=== PATIENT | male | born 1940 | race Caucasian/White ===

== ENCOUNTER 2016-12-07 09:23 | Inpatient (IN) | payer OTHER ==
[2016-11-24 12:22] LABS: % IMMATURE GRANULYOCYTES 0.2 % (0.0-1.1); ABSOLUTE IMMATURE GRANULOCYTES 0.01 10^3/uL (0.00-0.10); ADD DIFF? NO; ADD MORPH? NO; ADD SCAN? NO; ATYPICAL LYMPHOCYTE FLAG 30 (0-99); FRAGMENT RBC FLAG 0 (0-99); HEMATOCRIT 50.7 % (40.0-51.0); HEMOGLOBIN 17.3 g/dL (13.7-17.5); LEFT SHIFT FLG 0 (0-99); LIPEMIA HEMOLYSIS FLAG 90 (0-99); MEAN CELL HEMOGLOBIN 29.5 pg (27.9-34.1); MEAN CELL HEMOGLOBIN CONCENTR. 34.1 g/dL (32.4-36.7); MEAN CELL VOLUME 86.5 fL (81.5-99.8); MEAN PLATELET VOLUME 10.2 fL (8.7-11.7); PLATELET CLUMPS FLAG 0 (0-99); PLATELET COUNT 162 10^3/uL (150-400); RED BLOOD CELL COUNT 5.86 10^6/uL (4.40-6.38); RED CELL DISTRIBUTION WIDTH 12.9 % (11.5-15.2)
--- NOTE | 2016-12-05 14:58 | GHP ---
[f rep st] PREOP HISTORY AND PHYSICAL DATE OF ADMISSION: 12/07/2016 PROBLEM: Severe left knee degenerative arthritis. HISTORY OF PRESENT ILLNESS: The patient is a 76-year-old male who will be admitted for a left total knee arthroplasty with Dr. Blank at the [facility] on December 07, 2016. The patient has had pain in the left knee for about a year. He has pain both during the daytime and nighttime. His knee will be quite sore with walking on flat ground, as well as gobc-rn-xqyh motions. He is s till able to do some activities, such as bowling 2 times per week. He has tried and failed anti-inf lammatories and tramadol. He has had 1 previous cortisone injection, which was not very successful. No previous surgery of the left knee. Because of his progressive pain and advanced arthritis, the patient has elected to proceed with a left total knee arthroplasty. PAST MEDICAL HISTORY: Pertinent for rate-controlled atrial fibrillation, pacemaker, BPH, and histor y of septic shock in March of 2016 secondary to UTI. No history of MRSA, CAD, DVT or PE. No histo ry of hepatitis. CURRENT MEDICATIONS: Eliquis 5 mg b.i.d., atorvastatin 20 mg daily, finasteride 5 mg. ALLERGIES: He has no known drug allergies. SOCIAL HISTORY: The patient is retired. He is a former smoker. He has occasional alcohol and caff eine intake. He is . FAMILY HISTORY: Pertinent for coronary artery disease. PAST SURGICAL HISTORY: Pertinent for pacemaker implantation. PHYSICAL EXAMINATION: GENERAL: He is an otherwise healthy-appearing 76-year-old male. HEENT: Cma d is normocephalic, atraumatic. Eyes are PERRLA. Conjunctivae and sclerae are clear. Mouth: He h as good oral hygiene, without any loose teeth. LUNGS: Clear. HEART: Irregularly irregular rhythm, consistent with atrial fibrillation. No murmurs, gallops, or rubs are noted. EXTREMITIES: Pertin ent findings are limited to the patient's left knee. He has slight varus alignment of the left knee . He has a small effusion. Full extension and 125 degrees of flexion. There is tenderness of the medial joint line. The knee is stable to exam. He has mild crepitus with active knee extension. DIAGNOSTIC IMAGING: Recent x-rays taken of the patient's left knee show near complete medial compar tment degenerative arthritis with emru-zw-byzd findings. Peripheral osteophytes and increased subch ondral sclerosis are also noted. IMPRESSION ON ADMISSION: 1. Advanced left knee degenerative arthritis. 2. Chronic atrial fibrillation with Eliquis therapy. 3. History of on-demand pacemaker for heart block. 4. History of benign prostatic hypertrophy. 5. History of septic shock secondary to urinary tract infection. PLAN: The plan will be for the patient to undergo a left total knee arthroplasty with Dr. Blank at the [facility] on December 07, 2016. The surgery has been described to the patient, i ncluding the risks, benefits, and expectations. He understands the importance of postoperative phys ical therapy. He understands the risk of blood clots, heart attack, persistent knee pain or stiffne ss, or infection. All his questions have been answered, and he consents to surgery in the office to day. /[id number]/MODL
[~2016-12-07 09:23] MED LIST: ACETAMINOPHEN 325 MG TAB PO ONE; CHLORHEXIDINE GLUC HIBICLENS 118 ML BTL TP ONE; DEXAMETHASONE 4 MG/ML VIAL IVP ONE; FAMOTIDINE 20 MG TAB PO ONE; NS IV ONE; POVIDONE-IODINE 20 ML in SODIUM CL IRRIG SOLUTION 500 ML IRR ONE; ROPI/epiNEPH/KETOROLAC JOINT COCKTAIL IU ONE; TRANEXAMIC ACID IV ONE; VANCOMYCIN 1 GM VIAL IV ONE; ceFAZolin 1 GM/5 ML SYR ONE
[2016-12-07] MEDS ORDERED: DEXAMETHASONE 4 MG/ML VIAL ONE (10:21)
[2016-12-07] MEDS ORDERED: FAMOTIDINE 20 MG TAB ONE (10:21)
[2016-12-07] MEDS ORDERED: CEFAZOLIN 2 GM/DEXTROSE/100 ML BAG IV ONE (10:22)
[2016-12-07] MEDS ORDERED: ACETAMINOPHEN 325 MG TAB ONE (10:22)
[2016-12-07] MEDS ORDERED: TRANEXAMIC ACID 3,000 MG/50 ML BAG IRR ONE (10:40)
[2016-12-07] MEDS ORDERED: fentaNYL 100 MCG/2 ML INJ ONE ×4 (11:05→14:27)
[2016-12-07] MEDS ORDERED: MIDAZOLAM 2 MG/2 ML VIAL ONE ×2 (11:05→11:52)
[2016-12-07] MEDS ORDERED: PROPOFOL/EMULSION 500 MG/50 ML BOTTLE IV ONE (11:06)
[2016-12-07] MEDS ORDERED: ONDANSETRON 4 MG/2 ML VIAL ONE (11:10)
[2016-12-07] MEDS ORDERED: LR 1,000 ML IV ONE (11:21)
[2016-12-07] MEDS ORDERED: SUCCINYLCHOLINE CHLORIDE*ANESTHESIA ONLY*200 MG/10 ML SYR IVP ONE (12:14)
[2016-12-07] MEDS ORDERED: ROCURONIUM 50 MG/5 ML VIAL ONE (12:15)
[2016-12-07] MEDS ORDERED: TRANEXAMIC ACID 3,000 MG in NS 50 ML IRR ONE (12:30)
[2016-12-07] MEDS ORDERED: CHLORHEXIDINE GLUC HIBICLENS 118 ML BTL TP ONE (12:30)
[2016-12-07] MEDS ORDERED: ROPIVACAINE HCL 150 MG/30 ML INJ ONE (13:02)
--- NOTE | 2016-12-07 13:49 | POSTOPPROG ---
Post Op Note Date of Operation: 12/07/16 Surgeon: Rainer Blank Account Development Executive: Harsha/Kennedy Anesthesiologist: Chandana Post-op Diagnosis: R knee arthritis Procedure: R TKA Inf/Abcess present in the surg proc area at time of surgery?: No EBL: 50-100 (add canal block)
[2016-12-07] MEDS ORDERED: diphenhydrAMINE 25 MG CAP PO PRN (14:11)
[2016-12-07] MEDS ORDERED: KETOROLAC 30 MG/1 ML SDV IVP PRN (14:11)
[2016-12-07] MEDS ORDERED: POLYETHYLENE GLYCOL 3350 17 GM PKT PO PRN (14:11)
[2016-12-07] MEDS ORDERED: ONDANSETRON 4 MG/2 ML VIAL IVP PRN (14:11)
[2016-12-07] MEDS ORDERED: DIPHENOXYLATE/ATROPINE LOMOTIL 1 TAB PO PRN (14:11)
[2016-12-07] MEDS ORDERED: traMADol 50 MG TAB PO PRN (14:11)
[2016-12-07] MEDS ORDERED: PROMETHAZINE HCL 25 MG SUPPR PR PRN (14:11)
[2016-12-07] MEDS ORDERED: METOCLOPRAMIDE 10 MG/2 ML VIAL IVP PRN (14:11)
[2016-12-07] MEDS ORDERED: LACTULOSE 20 GM/30 ML UDCUP PO PRN (14:11)
[2016-12-07] MEDS ORDERED: BISACODYL 10 MG SUPP PR PRN (14:11)
[2016-12-07] MEDS ORDERED: PHARMACY PAIN CONSULT 1 EA MISC PRN (14:11)
[2016-12-07] MEDS ORDERED: MAGNESIUM HYDROXIDE 30 ML UDCUP PO PRN (14:11)
[2016-12-07] MEDS ORDERED: TEMAZEPAM 15 MG CAP PO PRN (14:11)
[2016-12-07] MEDS ORDERED: ONDANSETRON DISINTEGRATING 4 MG TAB PO PRN (14:11)
[2016-12-07] MEDS ORDERED: CYCLOBENZAPRINE 10 MG TAB PO PRN (14:11)
[2016-12-07] MEDS ORDERED: NS 500 ML IV PRN (14:11)
[2016-12-07] MEDS ORDERED: LR 1,000 ML IV SCH (14:30)
--- NOTE | 2016-12-07 14:39 | GOP ---
[f rep st] OPERATIVE REPORT DATE OF OPERATION: 12/07/2016 SURGEON: Rainer Blank MD NOISE ABATEMENT ENGINEER: Mannie Mcleod PA-C and Kristopher Benavides CFA. ANESTHESIA: General anesthesia and adductor canal block. ANESTHESIOLOGIST: Suma Ellington DO. PREOPERATIVE DIAGNOSIS: Left knee severe degenerative arthritis with varus deformity. POSTOPERATIVE DIAGNOSIS: Left knee severe degenerative arthritis with varus deformity. PROCEDURE PERFORMED: Left total knee arthroplasty, cemented, Huff and Nephew Journey II, posterior stabilized. FINDINGS: ESTIMATED BLOOD LOSS: Following placement of the tourniquet, was about 100 cc. Following deflation of the tourniquet, I applied topical tranexamic acid. This was left in the join t for 3 or 4 minutes before irrigating it out with a Betadine solution. The sponge and needle count was correct on 2 occasions. He was awakened from anesthesia, transferred to his gurney, and taken to PACU in satisfactory condit ion. There were no intraoperative complications. In the PACU, for additional postop pain control, Dr. Ellington performed an adductor canal block. Mannie Mcleod and Kristopher Benavides acted as surgical assistants. Their assistance was a medical carmen roblero. DESCRIPTION OF PROCEDURE: The patient was given 2 g of IV Ancef preoperatively within 60 minutes of surgery. He also received IV tranexamic acid at a dose of 10 mg/kg. He is placed on the operating room table and given general anesthesia by Dr. Ellington. He preferred not to have a spinal because he had been on Eliquis. A Mccormick catheter was not used. He wore a JON stocking and SCD on the nonop erative leg. His right lower extremity was prepped with ChloraPrep from the upper thigh tourniquet to the tips of the toes. It was draped free using sterile sheets, stockinette, and Ioban plastic ad hesive drape. The lower leg was wrapped with compressive Coban. The leg was exsanguinated with la vation and a 6-inch compressive wrap, and the pneumatic tourniquet was inflated to 275 mmHg. The World Health Organization time-out was performed to verify the correct patient identity and the correct surgical side. The [place] time-out was also performed. The [place] leg holding device was sterilely attached to the operating room table and used throughout the procedure to help position the knee. A straight midline incision was made centered on the blair lla. Subcutaneous tissues were sharply divided and hemostasis was obtained using electrocautery. A medial subcutaneous flap was developed and the capsule and synovium were opened in medial parapate llar fashion. Extensive degenerative changes were present in the patellofemoral joint and in the me dial compartment. The medial capsule and periosteum were elevated off the rim of the medial tibial plateau all around the posteromedial corner. The medial collateral ligament was released enough to balance the medial side of the knee. In order to improve exposure, the patella was prepared first. The original thickness of the patella was measured. Peripheral osteophytes were removed. He had a very large patella. I cut a flat jer face on the back of the patella. It was sized for a 41 mm resurfacing component. I removed enough bone from the patella such that the remaining bone plus the thickness of the patellar component recr eated the original thickness of the patella. The composite thickness was 29 mm. The intramedullary alignment guide system was used to set up the distal femoral cut. The distal fem ur was cut in 5 degrees of valgus. Because of a mild preoperative flexion contracture, I made a +2 mm cut on the distal femur. The sizing jig was used to determine proper femoral sizing. He was a t rue size 9. The 5-in-1 cutting block was applied, and the anterior and posterior cut and chamfer cu ts were made. The final jig was used to remove the central portion of the distal femur to accommoda te the posterior stabilized femoral component. I was careful to determine proper rotation by refere ncikarolyn off Whitesides line. Each cut was checked for accuracy before and after it was made. His fem ur was sized for a size 9 posterior stabilized component. The trial component was tapped securely i n place and was a good fit. Next, the tibia was prepared. The proximal tibial cut was made using the extramedullary alignment g uide system. The cut was made in a few degrees of posterior slope. I was careful to achieve proper varus-valgus alignment and proper rotation. The posterior compartment was cleared of meniscal remn ants. Osteophytes were removed from the back of the femoral condyles. I checked the flexion and ex tension gaps and they were equal, balanced and rectangular. The tibia was sized for a size 8 component. With the trial components in place, I selected a 9 mm p olyethylene posterior stabilized tibial insert. The knee came to full extension and flexed to 130 d egrees. No overstuffing in flexion. His collateral ligaments were stable and balanced in 90 degree s of flexion and full extension. The trial patellar button was applied, and tracking was checked. Tracking was excellent without any digital pressure. 40 mL of the joint anesthetic cocktail were injected in the posterior capsule, the periarticular str uctures, the quadriceps muscle and the tendon areas, and the subcutaneous tissues along the skin edg es. A second dose of IV tranexamic acid was given at a dose of 10 mg/kg. The surfaces were prepared for cementing. They were carefully cleaned with the pulsating lavage and thoroughly dried. The CarboJet device was used to blow dry the cancellous surfaces. A double batc h of high viscosity methylmethacrylate cement with 2 g of powdered vancomycin added was mixed. Whil e it was still in a semiliquid state, all [address] components were cemented in place. Excess cement was re moved before it hardened. The 9 mm trial tibial insert was re-tried and was the proper thickness. The actual component was in serted, locked into place. The knee was thoroughly irrigated 1 final time with a dilute Betadine so lution. The tourniquet was deflated and the total tourniquet time was 60 minutes. The vastus medialis portion of the extensor mechanism was repaired with several interrupted figure-o f-eight #2 FiberWire sutures. The capsule and synovium were closed first with multiple interrupted cobmzx-qz-[id number] 0 PDS sutures, followed by a running #2 barbed Ethicon Stratafix PDO suture. Subcut aneous tissues were closed with a running 0 barbed Ethicon Stratafix Monoderm suture. The skin was closed with a running 3-0 barbed Ethicon Stratafix Monoderm subcuticular suture. The skin was pao d with 1/2-inch Steri-Strips. The wound was covered with Xeroform gauze and flat 4 x 4's, and he wa s wrapped with a Kerlix 6-inch compressive wrap. A long-leg JON stocking and SCD were applied follo wed by the cooling device. The patient wore a stocking and SCD on the opposite leg during the proce dure. I used a size 9 cemented Huff and Nephew Oxinium posterior stabilized femoral component, size 8 violet ented tibial base plate, a 9 mm posterior stabilized tibial insert, and a 41 mm cemented round all-p olyethylene resurfacing patellar component. /[id number]/MODL
[2016-12-07] MEDS ORDERED: HYDROmorphONE/DILAUDID 1 MG/ML SYR ONE (14:55)
[2016-12-07] MEDS: ACETAMINOPHEN 325 MG TAB PO SCH ×2 (17:02→23:55)
[2016-12-07] MEDS: oxyCODONE IR 5 MG TAB PO PRN ×2 (17:02→20:24)
[2016-12-07 18:43] VITALS: RESP 16
[2016-12-07] MEDS: FAMOTIDINE 20 MG TAB PO SCH (20:25)
[2016-12-07] MEDS: SENNOSIDES/DOCUSATE SODIUM TAB PO SCH (20:25)
[2016-12-07] MEDS: TRANEXAMIC ACID 650 MG TAB PO SCH (20:26)
[2016-12-07] MEDS ORDERED: TAMSULOSIN HCL 0.4 MG CAP PO SCH (21:00)
[2016-12-07] MEDS: ceFAZolin 2 GM/DEXTROSE 100 ML IV SCH (21:30)
[2016-12-08] MEDS: ACETAMINOPHEN 325 MG TAB PO SCH ×2 (05:30→15:56)
[2016-12-08] MEDS: oxyCODONE IR 5 MG TAB PO PRN (05:32)
[2016-12-08] MEDS: TRANEXAMIC ACID 650 MG TAB PO SCH (05:32)
[2016-12-08] MEDS: ceFAZolin 2 GM/DEXTROSE 100 ML IV SCH (05:33)
[2016-12-08 05:35] LABS: HEMATOCRIT 40.6 % (40.0-51.0); HEMOGLOBIN 14.1 g/dL (13.7-17.5)
--- NOTE | 2016-12-08 07:35 | SOAPPROG ---
SOAP Progress Note Assessment/Plan: Assessment: Afebrile. Moderate pain. Has been walking in room. Dsg is dry. Films look good. H/H is good. Plan: Up with PT today. Long leg film. DC later today. 12/08/16 07:34 Objective: Vital Signs Temp Pulse Resp BP Pulse Ox 36.5 C 60 16 131/68 H 96 12/08/16 04:00 12/08/16 04:00 12/08/16 04:00 12/08/16 04:00 12/08/16 04:00 Laboratory Results 12/08/16 05:19 12/07/16 12/08/16 12/09/16 05:59 05:59 05:59 Intake Total 3060 1688 Output Total 950 Balance 2110 1688 ICD10 Worksheet Patient Problems: Problems Problem Status Onset Osteoarthritis of left knee Acute
[2016-12-08 07:51] VITALS: BP 106/65; PULSE 65; TEMP 96.8
--- NOTE | 2016-12-08 07:51 | GDS ---
[f rep st] DISCHARGE SUMMARY ADMISSION DIAGNOSIS: Left knee severe degenerative arthritis. DISCHARGE DIAGNOSIS: Left knee severe degenerative arthritis. TEST PERFORMED: On 12/07/2016, a left total knee arthroplasty. POSTOPERATIVE COMPLICATIONS: None. CONDITION ON DISCHARGE: Improved. DESCRIPTION OF HOSPITAL COURSE: The patient was admitted to the hospital on the morning of surgery. His admission CBC was normal. The same day under combination of general anesthesia and adductor c anal block he underwent a left total knee arthroplasty. Postoperatively he was treated with multimo flo DVT prophylaxis including aspirin and Eliquis. On the first postoperative day his hemoglobin an d hematocrit were 14.1 and 40.6. He was seen by Physical Therapy and made good progress with ambula tion, stairs and knee range of motion. By the time of discharge, he was afebrile and was independen t walking with a walker. DISPOSITION: Patient is discharged to his home. He will continue Eliquis 5 mg daily which he was o n preoperatively for atrial fibrillation. He will have outpatient physical therapy at the [facility]. Continue JON stockings for 1 week. He may progress to full weightbearing as tolerated. I will see him back in the office on 12/22/2016. If any problems, he is to call me at the office. /[id number]/MODL
[2016-12-08] MEDS: FAMOTIDINE 20 MG TAB PO SCH (08:08)
[2016-12-08] MEDS: SENNOSIDES/DOCUSATE SODIUM TAB PO SCH (08:09)
[2016-12-08 08:13] VITALS: O2SAT 96
[2016-12-08] MEDS ORDERED: FERROUS SULFATE 140 MG TAB.ER PO SCH (09:00)
[2016-12-08] MEDS ORDERED: APIXABAN 5 MG TAB PO SCH (09:00)
[2016-12-08] MEDS ORDERED: ATORVASTATIN CALCIUM 20 MG TAB PO SCH (09:00)
[2016-12-08] MEDS ORDERED: FINASTERIDE 5 MG TAB PO SCH (09:00)
== END 2016-12-08 14:46 | disposition home or self-care (01) | DRG 470 ==
LOC: F3N 09:23
PROVIDERS: ADMIT Orthopaedic Surgery; ATTEND Orthopaedic Surgery
PROC: 0SRB0J9 Replacement of Left Hip Joint with Synthetic Substitute, Cemented, Open Approach (ICD-10-PCS; principal; 2016-12-07 11:15)
DX: M17.12 Unilateral primary osteoarthritis, left knee (principal); I48.2 Chronic atrial fibrillation; N40.0 Benign prostatic hyperplasia without lower urinary tract symptoms; E78.00 Pure hypercholesterolemia, unspecified; G62.9 Polyneuropathy, unspecified; Z95.0 Presence of cardiac pacemaker
CPT/HCPCS: 97161-GP; 97165-GO; C1713; G8978-GP-CI; G8979-GP-CI; G8980-GP-CI; G8987-GO-CI; G8988-GO-CI; G8989-GO-CI; J0171; J0330; J0690; J1100; J1170; J1885; J2250; J2405; J2704; J2795; J3010; J3370

== ENCOUNTER 2018-03-11 01:36 | Emergency (ER) | payer OTHER ==
--- NOTE | 2018-03-11 01:44 | CPEKG ---
Heart Rate: 70 RR Interval: 857 QRSD Interval: 162 QT Interval: 460 QTC Interval: 497 QRS [place]: 79 T Wave [place]: -66 EKG Severity - ABNORMAL ECG - EKG Impression: AFIB/FLUTTER AND VENTRICULAR-PACED RHYTHM Electronically Signed By: Casey Jeronimo 11-Mar-2018 06:38:39
[2018-03-11 02:06] LABS: PLATELET COUNT 172 10^3/uL (150-400)
--- NOTE | 2018-03-11 02:37 | EDPHY ---
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 Patient woke this morning and felt his heart racing. He measured it at 120 beats per minute. No chest pain. No shortness of breath. He has had 2 similar episodes within the last year. Both stopped in less than half an hour. He decided to present to the emergency department this morning for evaluation. He says his symptoms stopped before he arrived here. He is currently without complaint. He is scheduled to follow up with Dr. 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 ROS: 10 point Review of Systems is negative except as noted in the HPI. PMH: Atrial fibrillation Social History: No smoking, no alcohol, no recreational drug use Family History: non-contributory Physical Exam: Gen: Awake, Alert, No Distress HEENT: Nose: no rhinorrhea Eyes: PERRLA, EOMI Mouth: Moist mucosa Neck: Supple, no JVD Chest: nontender, lungs clear to auscultation Heart: S1, S2 normal, no murmur Abd: Soft, non-tender, no guarding Back: no CVA tenderness, no midline tenderness Ext: no edema, non-tender Skin: no rash Neuro: CN II-XII intact, Sensation grossly intact, Strength 5/5 in bilateral upper and lower extremities - Personal History Current Tetanus Diphtheria and Acellular Pertussis (TDAP): Yes - Medical/Surgical History Hx Asthma: No Hx Chronic Respiratory Disease: No Hx Diabetes: No Hx Cardiac Disease: Yes Hx Renal Disease: No Hx Cirrhosis: No Hx Alcoholism: No Hx HIV/AIDS: No Hx Splenectomy or Spleen Trauma: No Other PMH: atrial fibrillation; pacemaker; [place]; septic shock 2nd UTI in Fall 2016 - Social History Smoking Status: Former smoker Constitutional: Initial Vital Signs Temperature (C) 36.5 C 03/11/18 01:43 Heart Rate 70 03/11/18 01:43 Respiratory Rate 18 03/11/18 01:43 Blood Pressure 128/77 H 03/11/18 01:43 O2 Sat (%) 94 03/11/18 01:43 O2 Delivery Mode Room Air Allergies/Adverse Reactions: No Known Allergies Allergy (Verified 11/21/16 12:45) Home Medications: Medication Instructions Recorded Apixaban [Eliquis] 5 mg PO BID 11/18/16 Atorvastatin Calcium [Lipitor 20 20 mg PO DAILY 11/18/16 mg (*)] Finasteride [Proscar 5 MG (*)] 5 mg PO DAILY 11/18/16 Tamsulosin HCl [Flomax 0.4 MG (*)] 0.4 mg PO HS 11/18/16 Acetaminophen [Tylenol 325mg (*)] 650 mg PO Q6HRS #0 tab 12/08/16 Ferrous Sulfate [Slow Fe 140 MG 140 mg PO DAILY #30 tab.er 12/08/16 (*)] Ondansetron Odt [Zofran Odt 4 mg 4 mg PO Q4HRS PRN #0 tab 12/08/16 (*)] oxyCODONE IR [Oxycodone Ir (*)] 5 - 10 mg PO Q3HRS PRN #0 tab 12/08/16 traMADol [Ultram 50 mg (*)] 50 mg PO Q6HRS PRN #0 tab 12/08/16 Metoprolol Succinate Xr [Toprol Xl 25 mg PO DAILY #30 tab.sr 03/11/18 25 mg (*)] Nitroglycerin 03/11/18 Medical Decision Making - Diagnostics EKG Interpretation: ECG time 1:41 a.m., atrial fibrillation, ventricular paced rhythm with a rate of 70 ED Course/Re-evaluation: 77-year-old male with an episode of of palpitations. He laboratory evaluations are unremarkable here. Patient's heart rate has been normal during his ED stay. He is without complaint. I have discussed with Dr. Crane, cardiology. He is recommending that the patient be started on Toprol XL 25 mg daily. Patient will follow up with Cardiology later this week. He does not believe the patient requires admission or interrogation of his pacemaker at this point and I think that this is very reasonable. Patient is comfortable with this plan. I have written a prescription. He will follow up as planned. - Data Points Laboratory Results: Laboratory Results 03/11/18 01:50 03/11/18 01:50 03/11/18 03/11/18 03/11/18 01:55 01:50 01:50 WBC 7.61 10^3/uL 10^3/uL (3.80-9.50) RBC 5.63 10^6/uL 10^6/uL (4.40-6.38) Hgb 17.0 g/dL g/dL (13.7-17.5) Hct 48.4 % % (40.0-51.0) MCV 86.0 fL fL (81.5-99.8) MCH 30.2 pg pg (27.9-34.1) MCHC 35.1 g/dL g/dL (32.4-36.7) RDW 12.9 % % (11.5-15.2) Plt Count 172 10^3/uL 10^3/uL (150-400) MPV 10.6 fL fL (8.7-11.7) Neut % (Auto) 44.8 % % (39.3-74.2) Lymph % (Auto) 40.1 % % (15.0-45.0) [place] % (Auto) 9.7 % % (4.5-13.0) Eos % (Auto) 4.7 % % (0.6-7.6) Baso % (Auto) 0.4 % % (0.3-1.7) Nucleat RBC Rel Count 0.0 % % (0.0-0.2) Absolute Neuts (auto) 3.41 10^3/uL 10^3/uL (1.70-6.50) Absolute Lymphs (auto) 3.05 10^3/uL H 10^3/uL (1.00-3.00) Absolute Monos (auto) 0.74 10^3/uL 10^3/uL (0.30-0.80) Absolute Eos (auto) 0.36 10^3/uL 10^3/uL (0.03-0.40) Absolute Basos (auto) 0.03 10^3/uL 10^3/uL (0.02-0.10) Absolute Nucleated RBC 0.00 10^3/uL 10^3/uL (0-0.01) Immature Gran % 0.3 % % (0.0-1.1) Immature Gran # 0.02 10^3/uL 10^3/uL (0.00-0.10) Sodium 140 mEq/L mEq/L (135-145) Potassium 3.9 mEq/L mEq/L (3.3-5.0) Chloride 107 mEq/L mEq/L (97-110) Carbon Dioxide 24 mEq/l mEq/l (22-31) Anion Gap 9 mEq/L mEq/L (8-16) BUN 19 mg/dL mg/dL (7-23) Creatinine 0.8 mg/dL mg/dL (0.7-1.3) Estimated GFR > 60 Glucose 116 mg/dL H mg/dL (70-100) Calcium 9.1 mg/dL mg/dL (8.5-10.4) POC Troponin I 0.00 ng/mL ng/mL (0.00-0.08) Point of Care Test Results: Chemistry 03/11/18 01:55 POC Troponin I 0.00 ng/mL ng/mL (0.00-0.08) Departure - Departure Disposition: Home, Routine, Self-Care Clinical Impression: Palpitations Condition: Good Instructions: Heart Palpitations (ED) Additional Instructions: Follow up with Dr. Vijay Pascal in 2-3 days for further evaluation. Return to the emergency department for increasing palpitations, chest pain, shortness of breath, lightheadedness, fainting, or any other concerns. Referrals: Petar Kaur MD [Primary Care Provider] - As per Instructions Prescriptions: Metoprolol Succinate Xr [Toprol Xl 25 mg (*)] 25 mg PO DAILY #30 tab.sr
[2018-03-11 03:07] VITALS: BP 109/71
== END 2018-03-11 03:00 | disposition home or self-care (01) ==
DX: R00.2 Palpitations (principal); Z79.01 Long term (current) use of anticoagulants; Z87.891 Personal history of nicotine dependence; Z95.0 Presence of cardiac pacemaker
CPT/HCPCS: 84484-PO